=== PATIENT | male | born 1955 | race Caucasian/White ===

== ENCOUNTER 2016-09-24 09:43 | Emergency (ER) | payer OTHER ==
[2016-09-24] MEDS ORDERED: Triple Antibiotic Oint 1 GM Packet ONE (10:42)
--- NOTE | 2016-09-24 10:49 | ERRECORD ---
[facility] EMERGENCY RECORD HPI LACERATION (09:59 [facility]) CHIEF COMPLAINT: Patient presents for evaluation of laceration to hand, on the left, 0-1.5cm in length, through dermis. HISTORIAN: History provided by patient, 61M presents with a laceration to the palm of his left hand. stumbled while holding a light bulb which broke in his hand. Has some tingling of his left forefinger, but denies other injury or pain. Denies any other trauma. MECHANISM OF INJURY: Known mechanism, Mechanism of injury: Cut or punctured by. LOCATION: Symptoms are localized. QUALITY: Laceration quality straight, Pain is sharp in nature. TIME COURSE: Sudden onset of symptoms. ASSOCIATED WITH: Associated with bleeding, Associated with tingling. EXACERBATED BY: Patient's condition exacerbated by nothing. RELIEVED BY: Patient's condition relieved by nothing because patient has not tried anything for relief. TETANUS: Tetanus status up to date. ROS (10:01 [facility]) CONSTITUTIONAL: Negative constitutional review of systems, Historian denies chills, denies fever. EYES: Negative eye review of systems, Historian denies eye pain, denies eye discharge, denies vision changes. ENT: Negative ears, nose, throat review of systems, Historian denies rhinorrhea, denies sore throat. CARDIOVASCULAR: Negative cardiovascular review of systems, Historian denies chest pain, denies palpitations. RESPIRATORY: Negative respiratory review of systems, Historian denies cough, denies shortness of breath. GI: Negative gastrointestinal review of systems, Historian denies abdominal pain, denies constipation, denies diarrhea, denies nausea, denies vomiting. GENITOURINARY MALE: Negative genitourinary review of systems, Historian denies dysuria, denies hematuria. MUSCULOSKELETAL: Negative musculoskeletal review of systems, Historian denies back pain, denies fall, denies injury, denies neck pain. SKIN: Negative skin review of systems, Historian denies rash, Historian denies skin changes. laceration to left palm. NEUROLOGIC: Negative neurologic review of systems, Historian denies headache. HEMO/LYMPHATIC: Normal hematologic/lymphatic system review, Historian denies abnormal blood clotting. PAST MEDICAL HISTORY (09:53 [facility]) MEDICAL HISTORY: Flu vaccine up to date, Tetanus immunization up to date, Pneumococcal vaccine up to date, Past medical history includes history of diabetes, diet controlled, Past medical history includes history of hyperlipidemia, &a-1R&a+25V*p+0X*[id number]*c202B*c15G*c2P*p-0X&a-25V&a+1R Name: Bertram Bobo : 1955 M61 MedRec: [id number] AcctNum: [id number] Prepared: Melony Sep 24, 2016 14:10 by Interface Page 1 of 4 pMD [facility] EMERGENC[facility] RECORD high cholesterol, Past medical history includes history of hypertension, which has been treated, Patient is compliant. MALE SURGICAL HISTORY: Left rotator cuff repair-2012; Right great toe fusion, Surgical history of prostatectomy, Surgical history of splenectomy, Date of surgery 2014, Notes: C, L, laminecomy. PSYCHIATRIC HISTORY: Psychiatric history includes, anxiety, depression. SOCIAL HISTORY: Patient denies alcohol use, Patient denies drug use, Patient has no smoking history. KNOWN ALLERGIES Cipro oral suspension Cipro tablet Penicillins CURRENT MEDICATIONS Bystolic: TABLET : Strength - 5 mg : ORAL Patient Dose: 5 mg Oral once a day. (09:57 [facility]) allopurinol: TABLET : Strength - 100 mg : ORAL Patient Dose: 200 mg Oral once a day. (09:58 [facility]) atorvastatin: TABLET : Strength - 80 mg : ORAL Patient Dose: 80 mg Oral once a day (in the morning). (09:58 [facility]) LaMICtal: TABLET : Strength - 100 mg : ORAL Patient Dose: 100 mg Oral once a day. (09:58 [facility]) Cymbalta: CAPSULE,DELAYED RELEASE (ENTERIC COATED) : Strength - 60 mg : ORAL Patient Dose: 60 mg Oral once a day. (09:59 [facility]) Nuedexta: CAPSULE : Strength - 20 mg-10 mg : ORAL Patient Dose: 10 mg Oral 2 times a day. (09:59 [facility]) pramipexole: TABLET : Strength - 1.5 mg : ORAL Patient Dose: 1.5 mg Oral once a day (at bedtime). (10:00 [facility]) VITAL SIGNS (09:49 [facility]) VITAL SIGNS: BP: 154/79, Pulse: 79, Resp: 16, Temp: 98.1 (Oral), Pain: 4, O2 sat: 95 on Room Air, Time: 09/24/2016 09:49. PHYSICAL EXAM (10:01 [facility]) CONSTITUTIONAL: Vital signs reviewed, Patient afebrile, Pulse normal, Blood pressure normal, Respiratory rate normal, Patient appears non toxic, Patient appears pain free, Patient alert and &a-1R&a+25V*p+0X*[id number]*c202B*c15G*c2P*p-0X&a-25V&a+1R Name: Bertram Bobo : 1955 M61 MedRec: [id number] AcctNum: [id number] Prepared: Melony Sep 24, 2016 14:10 by Interface Page 2 of 4 pMD [facility] EM[facility] RECORD oriented to person, place and time. HEAD: Head exam normal, Head exam included findings of head atraumatic, normocephalic. EYES: Eye exam normal, Eye exam included findings of eyelids normal to inspection, Pupils equally round and reactive to light, Extraocular muscles intact, no nystagmus. ENT: ENT exam normal, Ear exam normal, external ear normal, tympanic membranes normal, no bleeding, Pharynx exam normal, Uvula exam normal, Tonsil exam normal, Mouth exam normal, mucous membranes moist, teeth normal. NECK: Neck exam normal, Neck exam included findings of normal range of motion, Trachea midline, no meningeal signs, no cervical adenopathy, no tenderness. RESPIRATORY CHEST: Respiratory and chest exam normal, Respiratory exam included findings of no respiratory distress, Breath sounds clear. CARDIOVASCULAR: Cardiovascular assessment normal, Cardiovascular exam included findings of heart rate regular rate and rhythm, Heart sounds normal. ABDOMEN MALE: Abdominal exam included findings of abdomen nontender, Bowel sounds normal, no distension, no mass, no pulsatile masses, no peritoneal signs, no rigidity, no guarding, no rebound, Rovsing's sign absent. BACK: Back exam normal, Back exam included findings of normal inspection, range of motion normal, no tenderness. UPPER EXTREMITY: Upper extremity exam normal, Upper extremity exam included findings of inspection normal, Range of motion normal, Motor strength normal, Sensation intact, Radial pulse normal. LOWER EXTREMITY: Lower extremity exam normal, Lower extremity exam included findings of inspection normal, Range of motion normal, Motor strength normal, Sensation intact, Posterior tibial pulse normal, Pedal pulse normal. NEURO: Neuro exam normal, Neuro exam findings include patient oriented to person, place and time, Speech normal, Gait normal. SKIN: Skin exam included findings of skin warm, dry, and normal in color, no rash, 1.5-2.0cm laceration to lateral left palmar surface. Minor bleeding. No loss of sensation or motor function distally. Does report some subjective tingling of left forefinger. PSYCHIATRIC: Psychiatric exam normal, Normal affect. MEDICATION ADMINISTRATION SUMMARY Drug Name: *Triple Antibiotic topical ointment in p, Dose Ordered: 1 units, Route: Topical, Status: Given, Time: 10:51 09/24/2016, Drug Name: Xylocaine-MPF 20 mg/mL (2 %) injection s, Dose Ordered: 5 mL, Route: Subcutaneous, Status: Given, Time: 10:30 09/24/2016, *Additional information available in notes, Detailed record available in Medication Service section. &a-1R&a+25V*p+0X*[id number]*c202B*c15G*c2P*p-0X&a-25V&a+1R Name: Bertram Bobo : 1955 M61 MedRec: [id number] AcctNum: [id number] Prepared: Melony Sep 24, 2016 14:10 by Interface Page 3 of 4 pMD [facility] EM[facility] RECORD DOCTOR NOTES (10:40 [facility]) TEXT: laceration to left palm, no signs of neurovascular involvement. patient tolerated repair well, well approximated. PATIENT STATUS: Patient has improved since arrival to emergency department. PATIENT PLAN: The patient will be discharged, The patient will follow up with primary care physician. PROBLEM LIST No recorded problems DIAGNOSIS (10:37 JJA) FINAL: PRIMARY: laceration left hand. PRESCRIPTION (10:38 [facility]) Bactrim DS: TABLET : 800 mg-160 mg : ORAL : Quantity: 1 Unit: tab(s) Route: ORAL Schedule: 2 times a day (before meals) Dispense: 14 May substitute. Refills: No Refills . NOTES: No refills. DISPOSITION PATIENT: Disposition Type: Discharge, Disposition: *Discharge Home. (10:37 JJA) Patient left the department. (10:49 [facility]) Sommer: PAOLA=MD Shi, Henrik [facility]=ANASTACIA Miramontes, Idalia &a-1R&a+25V*p+0X*[id number]*c202B*c15G*c2P*p-0X&a-25V&a+1R Name: Bertram Bobo : 1955 M61 MedRec: [id number] AcctNum: [id number] Prepared: Melony Sep 24, 2016 14:10 by Interface Page 4 of 4 pMD [facility]D
--- NOTE | 2016-09-24 10:55 | PICIS ---
[facility] EMERGENCY RECORD TRIAGE (09:48 KMOR) TRIAGE NOTES: Changing light bulb and fell, causing laceration to left hand. (09:48 KMOR) PATIENT: NAME: Bertram Bobo, AGE: 61, GENDER: male, : Sun1955, TIME OF GREET: Sun Sep 24, 2016 09:44, PREFERRED LANGUAGE: Latvian, ETHNICITY: Not or , ECODE BILLING MAP: [facility], SSN: [id number], Zip Code: [address], KG WEIGHT: 109.32, PHONE: , , , PERSON ID: [id number], PAYMENT: [employer], PCP: kayy. (09:48 KMOR) COMPLAINT: Hand Laceration. (09:48 KMOR) ADMISSION: URGENCY: 4 Non Urgent, ADMISSION SOURCE: Home, TRANSPORT: CAR, BED: ER -03. (09:48 KMOR) ASSESSMENT: Assessment: A&OX4. RR EVEN AND UNLABORED., Symptoms began 1 hour ago. (09:53 KMOR) PAIN: Patient complains of pain described as, dull, on a scale 0-10 patient rates pain as 4, Location LEFT HAND. (09:53 KMOR) IMMUNIZATIONS: Flu vaccine up to date, Tetanus immunization up to date, Pneumococcal vaccine up to date. (09:53 KMOR) SIRS SCORING: Heart Rate 55-109 (0), Temp range 96.8-101.1 (0), respiratory rate 12-24 (0), Mental Status altered: no (0), Infection or Suspected Infection: No. (09:53 KMOR) TRIAGE SCREENING: Patient denies suicidal ideation, Patient denies presence of domestic violence. (09:53 KMOR) PROVIDERS: TRIAGE NURSE: Idalia Miramontes RN. (09:48 KMOR) VITAL SIGNS: BP 154/79, Pulse 79, Resp 16, Temp 98.1, (Oral), Pain 4, O2 Sat 95, on Room Air, Time 09/24/2016 09:49. (09:49 KMOR) KNOWN ALLERGIES Cipro oral suspension Cipro tablet Penicillins CURRENT MEDICATIONS Bystolic: TABLET : Strength - 5 mg : ORAL Patient Dose: 5 mg Oral once a day. (09:57 KMOR) allopurinol: TABLET : Strength - 100 mg : ORAL Patient Dose: 200 mg Oral once a day. (09:58 KMOR) atorvastatin: TABLET : Strength - 80 mg : ORAL Patient Dose: 80 mg Oral once a day (in the morning). (09:58 KMOR) LaMICtal: TABLET : Strength - 100 mg : ORAL Patient Dose: 100 mg Oral once a day. (09:58 KMOR) Cymbalta: CAPSULE,DELAYED RELEASE (ENTERIC COATED) : Strength - 60 mg : ORAL &a-1R&a+25V*p+0X*q9625X*c202B*c15G*c2P*p-0X&a-25V&a+1R Name: Bertram Bobo : 1955 M61 MedRec: [id number] AcctNum: [id number] Prepared: Melony Sep 24, 2016 14:16 by Interface Page 1 of 8 pMD [facility] EMERGENCY RECORD Patient Dose: 60 mg Oral once a day. (09:59 KMOR) Nuedexta: CAPSULE : Strength - 20 mg-10 mg : ORAL Patient Dose: 10 mg Oral 2 times a day. (09:59 KMOR) pramipexole: TABLET : Strength - 1.5 mg : ORAL Patient Dose: 1.5 mg Oral once a day (at bedtime). (10:00 KMOR) VITAL SIGNS (09:49 KMOR) VITAL SIGNS: BP: 154/79, Pulse: 79, Resp: 16, Temp: 98.1 (Oral), Pain: 4, O2 sat: 95 on Room Air, Time: 09/24/2016 09:49. NURSING ASSESSMENT: EXTREMITY UPPER (10:03 KMOR) CONSTITUTIONAL: Patient arrives ambulatory, Gait steady, History obtained from patient, Patient appears comfortable, Patient cooperative, Patient alert, Oriented to person, place and time, Skin warm, Skin dry, Skin normal in color, Mucous membranes pink, Mucous membranes moist, Patient is well-groomed, Patient complains of Left hand laceration, Left hand laceration sp fell while holding a light bulb. Laceration to palm of left hand. PAIN: dull pain, to the left hand, on a scale 0-10 patient rates pain as 4. LEFT UPPER EXTREMITY: Left upper extremity assessment findings include capillary refill less than 2 seconds, Skin color normal to hand, Skin temperature to hand warm, Distal sensation intact, Muscle tone normal, muscle strength 5, no edema present, radial pulse is +3, Inspection findings include laceration, to medial palm, bleeding controlled. RIGHT UPPER EXTREMITY: Right upper extremity assessment findings include capillary refill less than 2 seconds, Skin color normal to hand, Skin temperature to hand warm, Distal sensation intact, Muscle tone normal, muscle strength 5, no edema present, radial pulse is +3. NOTES: Patient tolerated procedure well. NURSING PROCEDURE: DISCHARGE NOTE (10:45 KMOR) DISCHARGE: Patient discharged to home, ambulating without assistance, driving self, unaccompanied, Summary of Care printed/ provided, Transition record given to patient, Discharge instructions given to patient, Simple or moderate discharge teaching performed, by ANASTACIA Friedman, Discharge instructions and follow up reviewed with patient. Pt ambulatory to discharge desk., Prescriptions given and instructions on side effects given, Name of prescription(s) given: Bactrim, Above person(s) verbalized understanding of discharge instructions and follow-up care. BELONGINGS: Belongings remain with patient, Valuables remain with patient. NURSING PROCEDURE: TRANSPORT TO TESTS PATIENT IDENTIFIER: Patient actively involved in identification &a-1R&a+25V*p+0X*b9535K*c202B*c15G*c2P*p-0X&a-25V&a+1R Name: Bertram Bobo : 1955 M61 MedRec: [id number] AcctNum: [id number] Prepared: Melony Sep 24, 2016 14:16 by Interface Page 2 of 8 D [facility] EMERGENCY RECORD process, Patient's identity verified by patient stating name, Patient's identity verified by patient stating date. (10:00 KMOR) TRANSPORT TO TESTS: Transport indicated to facilitate diagnosis, Patient transported to x-ray, via wheelchair, Accompanied by x-ray injection maintenance technician. (10:00 KMOR) FOLLOW-UP: After procedure, patient returned to emergency department. (10:13 KMOR) NOTES: Patient tolerated procedure well. (10:00 KMOR) NURSING PROCEDURE: WOUND CARE (10:30 KMOR) PATIENT IDENTIFIER: Patient actively involved in identification process, Patient's identity verified by patient stating name, Patient's identity verified by patient stating date. TIMEOUT: Prior to procedure, correct patient verified by, patient stating name, patient stating date, Correct procedure verified, Correct site verified, Correct equipment utilized, Physician performing procedure Dr. Walker, Witnessed by ANASTACIA Friedman. WOUND CARE: Wound care indicated for wound debridement and cleansing, Wound care indicated to promote healing, Wound site: left palm, Cause of wound: glass, Local infiltration with, 2% lidocaine with epinephrine, Wound cleansed with Betadine, by Dr. Henley, Wound repaired with sutures, by Dr. henley, using 1 pack of suture, Last tetanus shot received less than 5 years ago. FOLLOW-UP: After procedure, simple dressing applied, using kerlex dressing, using telfa pad dressing, triple antibiotic ointment applied, After procedure, on a scale 0-10 patient rates pain as 2, After procedure, capillary refill less than 2 seconds, After procedure, distal circulation intact, After procedure, distal motor intact, After procedure, distal sensation intact, After procedure, distal pulses present. NOTES: Patient tolerated procedure well. ORDER DETAILS Order Name: chart element #1, Status: Active, Time: 10:30 09/24/2016, User: System, - Ordered for: MD Henley Jason, - Entered by: ANASTACIA Miramontes Krista - Sun Sep 24, 2016 10:30, - Quantity: 1, Order Name: chart element #4, Status: Active, Time: 10:30 09/24/2016, User: System, - Ordered for: MD Henley Jason, - Entered by: ANASTACIA Miramontes Krista - Sun Sep 24, 2016 10:30, - Quantity: 1, Order Name: PROCEDURE SET-UP, Status: Done, Time: 12:23 09/24/2016, User: FOURward Thought, - Ordered for: MD Henley Jason, - Entered by: ANASTACIA Miramontes Krista - Sun Sep 24, 2016 12:22, - Quantity: 1, &a-1R&a+25V*p+0X*v2098N*c202B*c15G*c2P*p-0X&a-25V&a+1R Name: Bertram Bobo : 1955 M61 MedRec: [id number] AcctNum: [id number] Prepared: Melony Sep 24, 2016 14:16 by Interface Page 3 of 8 pMD [facility] EMERGENCY RECORD Order Name: WOUND CARE ED, Status: Done, Time: 12:23 09/24/2016, User: MARLENE, - Ordered for: MD Henley Jason, - Entered by: ANASTACIA Miramontes Krista - Melony Sep 24, 2016 12:22, - Quantity: 1, Order Name: XR Hand Lt 3 View STANDARD, Status: Active, Time: 09:59 09/24/2016, User: PAOLA, - Ordered for: MD Henley Jason, - Entered by: MD Henley Jason - Melony Sep 24, 2016 09:59, - Quantity: 1. MEDICATION ADMINISTRATION SUMMARY Drug Name: *Triple Antibiotic topical ointment in p, Dose Ordered: 1 units, Route: Topical, Status: Given, Time: 10:51 09/24/2016, Drug Name: Xylocaine-MPF 20 mg/mL (2 %) injection s, Dose Ordered: 5 mL, Route: Subcutaneous, Status: Given, Time: 10:30 09/24/2016, *Additional information available in notes, Detailed record available in Medication Service section. MEDICATION SERVICE Triple Antibiotic topical ointment in packet: Order: Triple Antibiotic topical ointment in packet (neomycin sulfate/bacitracin zinc/polymyxin B) - Dose: 1 units : Topical Schedule: Now Notes: Verbal Order Ordered by: Henrik Henley MD Entered by: ANASTACIA Remy Sep 24, 2016 10:50 Documented as given by: ANASTACIA Remy Sep 24, 2016 10:51 Patient, Medication, Dose, Route and Time verified prior to administration. Amount given: 1 unit, Skin cleansed prior to administration, Correct patient, time, route, dose and medication confirmed prior to administration, Patient advised of actions and side-effects prior to administration, Allergies confirmed and medications reviewed prior to administration, Advised not to ambulate without assistance, Patient in position of comfort, Side rails up, Cart in lowest position. : Follow Up : Response assessment performed, No signs or symptoms of allergic reaction noted. (10:52 KMOR) Xylocaine-MPF 20 mg/mL (2 %) injection solution: Order: Xylocaine-MPF 20 mg/mL (2 %) injection solution (lidocaine HCl/preservative free) - Dose: 5 mL : Subcutaneous Schedule: Now Ordered by: Henrik Henley MD Entered by: ANASTACIA Remy Sep 24, 2016 12:24 Documented as given by: ANASTACIA Remy Sep 24, 2016 10:30 Patient, Medication, Dose, Route and Time verified prior to administration. Administered by Dr. Henley, Advised not to ambulate without assistance, Patient in position of comfort, Side rails up, Cart in &a-1R&a+25V*p+0X*a2639Y*c202B*c15G*c2P*p-0X&a-25V&a+1R Name: Bertram Bobo : 1955 M61 MedRec: [id number] AcctNum: [id number] Prepared: Melony Sep 24, 2016 14:16 by Interface Page 4 of 8 pMD [facility] EMERGENCY RECORD lowest position, left hand. HPI LACERATION (09:59 [facility]) CHIEF COMPLAINT: Patient presents for evaluation of laceration to hand, on the left, 0-1.5cm in length, through dermis. HISTORIAN: History provided by patient, 61M presents with a laceration to the palm of his left hand. stumbled while holding a light bulb which broke in his hand. Has some tingling of his left forefinger, but denies other injury or pain. Denies any other trauma. MECHANISM OF INJURY: Known mechanism, Mechanism of injury: Cut or punctured by. LOCATION: Symptoms are localized. QUALITY: Laceration quality straight, Pain is sharp in nature. TIME COURSE: Sudden onset of symptoms. ASSOCIATED WITH: Associated with bleeding, Associated with tingling. EXACERBATED BY: Patient's condition exacerbated by nothing. RELIEVED BY: Patient's condition relieved by nothing because patient has not tried anything for relief. TETANUS: Tetanus status up to date. ROS (10:01 [facility]) CONSTITUTIONAL: Negative constitutional review of systems, Historian denies chills, denies fever. EYES: Negative eye review of systems, Historian denies eye pain, denies eye discharge, denies vision changes. ENT: Negative ears, nose, throat review of systems, Historian denies rhinorrhea, denies sore throat. CARDIOVASCULAR: Negative cardiovascular review of systems, Historian denies chest pain, denies palpitations. RESPIRATORY: Negative respiratory review of systems, Historian denies cough, denies shortness of breath. GI: Negative gastrointestinal review of systems, Historian denies abdominal pain, denies constipation, denies diarrhea, denies nausea, denies vomiting. GENITOURINARY MALE: Negative genitourinary review of systems, Historian denies dysuria, denies hematuria. MUSCULOSKELETAL: Negative musculoskeletal review of systems, Historian denies back pain, denies fall, denies injury, denies neck pain. SKIN: Negative skin review of systems, Historian denies rash, Historian denies skin changes. laceration to left palm. NEUROLOGIC: Negative neurologic review of systems, Historian denies headache. HEMO/LYMPHATIC: Normal hematologic/lymphatic system review, Historian denies abnormal blood clotting. PAST MEDICAL HISTORY (09:53 KMOR) MEDICAL HISTORY: Flu vaccine up to date, Tetanus immunization up to date, Pneumococcal vaccine up to date, Past medical history &a-1R&a+25V*p+0X*a6946L*c202B*c15G*c2P*p-0X&a-25V&a+1R Name: Bertram Bobo : 1955 M61 MedRec: [id number] AcctNum: [id number] Prepared: Melony Sep 24, 2016 14:16 by Interface Page 5 of 8 pMD [facility] EMERGENCY RECORD includes history of diabetes, diet controlled, Past medical history includes history of hyperlipidemia, high cholesterol, Past medical history includes history of hypertension, which has been treated, Patient is compliant. MALE SURGICAL HISTORY: Left rotator cuff repair-2012; Right great toe fusion, Surgical history of prostatectomy, Surgical history of splenectomy, Date of surgery 2014, Notes: C, L, laminecomy. PSYCHIATRIC HISTORY: Psychiatric history includes, anxiety, depression. SOCIAL HISTORY: Patient denies alcohol use, Patient denies drug use, Patient has no smoking history. PHYSICAL EXAM (10:01 [facility]) CONSTITUTIONAL: Vital signs reviewed, Patient afebrile, Pulse normal, Blood pressure normal, Respiratory rate normal, Patient appears non toxic, Patient appears pain free, Patient alert and oriented to person, place and time. HEAD: Head exam normal, Head exam included findings of head atraumatic, normocephalic. EYES: Eye exam normal, Eye exam included findings of eyelids normal to inspection, Pupils equally round and reactive to light, Extraocular muscles intact, no nystagmus. ENT: ENT exam normal, Ear exam normal, external ear normal, tympanic membranes normal, no bleeding, Pharynx exam normal, Uvula exam normal, Tonsil exam normal, Mouth exam normal, mucous membranes moist, teeth normal. NECK: Neck exam normal, Neck exam included findings of normal range of motion, Trachea midline, no meningeal signs, no cervical adenopathy, no tenderness. RESPIRATORY CHEST: Respiratory and chest exam normal, Respiratory exam included findings of no respiratory distress, Breath sounds clear. CARDIOVASCULAR: Cardiovascular assessment normal, Cardiovascular exam included findings of heart rate regular rate and rhythm, Heart sounds normal. ABDOMEN MALE: Abdominal exam included findings of abdomen nontender, Bowel sounds normal, no distension, no mass, no pulsatile masses, no peritoneal signs, no rigidity, no guarding, no rebound, Rovsing's sign absent. BACK: Back exam normal, Back exam included findings of normal inspection, range of motion normal, no tenderness. UPPER EXTREMITY: Upper extremity exam normal, Upper extremity exam included findings of inspection normal, Range of motion normal, Motor strength normal, Sensation intact, Radial pulse normal. LOWER EXTREMITY: Lower extremity exam normal, Lower extremity exam included findings of inspection normal, Range of motion normal, Motor strength normal, Sensation intact, Posterior tibial pulse normal, Pedal pulse normal. &a-1R&a+25V*p+0X*x4921K*c202B*c15G*c2P*p-0X&a-25V&a+1R Name: Bertram Bobo : 1955 M61 MedRec: [id number] AcctNum: [id number] Prepared: Melony Sep 24, 2016 14:16 by Interface Page 6 of 8 pMD [facility] EMERGENCY RECORD NEURO: Neuro exam normal, Neuro exam findings include patient oriented to person, place and time, Speech normal, Gait normal. SKIN: Skin exam included findings of skin warm, dry, and normal in color, no rash, 1.5-2.0cm laceration to lateral left palmar surface. Minor bleeding. No loss of sensation or motor function distally. Does report some subjective tingling of left forefinger. PSYCHIATRIC: Psychiatric exam normal, Normal affect. EVENTS TRANSFER: Triage to Emergency Emergency Room -03. (Melony Sep 24, 2016 09:48 KMOR) Removed from Emergency Emergency Room -03. (10:49 KMOR) DOCTOR NOTES (10:40 JJA) TEXT: laceration to left palm, no signs of neurovascular involvement. patient tolerated repair well, well approximated. PATIENT STATUS: Patient has improved since arrival to emergency department. PATIENT PLAN: The patient will be discharged, The patient will follow up with primary care physician. LACERATION-SINGLE REPAIR (10:39 JJA) LACERATION REPAIR: Side and/or site verified, Verbal consent obtained, no tendon involvement, no joint involvement, Wound not near a neurovascular bundle, No pulse deficit, Capillary refill less than 2 seconds, Distal motor intact, Distal sensation intact, No signs of compartment syndrome, Local infiltration with, 2% LIDOCAINE without epinephrine, 1mL, Wound irrigated with normal saline, (mls) 500, Simple repair of laceration, to the hand, palm, total length 2.0 cm, After procedure, wound well approximated, dressing applied, No complications, Tetanus status up to date, 3 single interrupted sutures with 5-0 prolene. PROBLEM LIST No recorded problems DIAGNOSIS (10:37 JJA) FINAL: PRIMARY: laceration left hand. DISPOSITION PATIENT: Disposition Type: Discharge, Disposition: *Discharge Home. (10:37 JJAC) Patient left the department. (10:49 KMOR) INSTRUCTION (10:37 [facility]) DISCHARGE: HAND LACERATION. SPECIAL: Watch for signs of infection, have sutures removed in 10 days. &a-1R&a+25V*p+0X*j1842K*c202B*c15G*c2P*p-0X&a-25V&a+1R Name: Bertram Bobo : 1955 M61 MedRec: [id number] AcctNum: [id number] Prepared: Melony Sep 24, 2016 14:16 by Interface Page 7 of 8 pMD [facility] EMERGENCY RECORD PRESCRIPTION (10:38 JJA) Bactrim DS: TABLET : 800 mg-160 mg : ORAL : Quantity: 1 Unit: tab(s) Route: ORAL Schedule: 2 times a day (before meals) Dispense: 14 May substitute. Refills: No Refills . NOTES: No refills. IMAGING (10:53 KMOR) *DISCHARGE INSTRUCTIONS RECEIPT: Image captured from scanner. *SUPPLY CHARGE SHEET: Image captured from scanner. ADMIN DIGITAL SIGNATURE: MD Henley Jason. (10:41 [facility]) MD Henley Jason. (10:55 [facility]) ANASTACIA Miramontes Krista. (10:59 KMOR) ANASTACIA Miramontes Krista. (12:25 KMOR) MD Henley Jason. (14:04 [facility]) Sommer: HELEN=MD Henley Jason KMOR=ANASTACIA Miramontes Krista &a-1R&a+25V*p+0X*o6576A*c202B*c15G*c2P*p-0X&a-25V&a+1R Name: Jeramie Bertram : 1955 M61 MedRec: [id number] AcctNum: [id number] Prepared: Melony Sep 24, 2016 14:16 by Interface Page 8 of 8 pMD MTDD
--- NOTE | 2016-09-24 13:32 | RAD ---
LEFT HAND 3 VIEWS: Date: 09/24/16 FINDINGS: No fracture or opaque foreign body was appreciated at this time. All bones appeared intact. A mehul of bone at the tip of the ulnar styloid is probably from an old injury. There are beginnings of a fe w minimal osteophytes and a few of the DIP joints. IMPRESSION: No acute bony findings. Aside from arthritis, old trauma and film artifact, there was no clear opaqu e foreign body. POS: HOME
== END 2016-09-24 10:45 | disposition home or self-care (01) ==
LOC: BURERS 09:43
DX: S61.412A Laceration without foreign body of left hand, initial encounter (principal); E11.9 Type 2 diabetes mellitus without complications; E78.5 Hyperlipidemia, unspecified; E78.00 Pure hypercholesterolemia, unspecified; I10 Essential (primary) hypertension; F41.9 Anxiety disorder, unspecified; F31.9 Bipolar disorder, unspecified; Z79.899 Other long term (current) drug therapy; W25.XXXA Contact with sharp glass, initial encounter
CPT/HCPCS: 12001; 99283; J2001